=== PATIENT | male | born 1980 | race Caucasian/White ===

== ENCOUNTER 2016-10-05 22:00 | Emergency (ER) | payer OTHER ==
[~2016-10-05] VITALS: Ht 185.4 cm; Wt 108.9 kg
[2016-10-05] MEDS ORDERED: KENALOG-40 ONE (22:25)
[2016-10-05] MEDS ORDERED: TORADOL ONE (22:25)
--- NOTE | 2016-10-05 22:25 | ER.PDOC ---
General Chief Complaint: Neck/Upper back Pain Stated Complaint: NECK PAIN Time seen by MD: 22:23 Source: patient Exam Limitations: no limitations History of Present Illness Initial Comments Neck pain for 6 Months worse today. No new injury. Has been to multiple Physicians including a Neurologist. He also has blurry vision with the right eye. Severity/Quality: moderate Allergies: Coded Allergies: No Known Allergies (Unverified , 10/05/16) Past Medical History Medical History: high cholesterol, hypertension, other (Chronic neck pain) Surgical History: cholecystectomy Social History Smoking: cigarettes, less than 1 pack/day Alcohol Use: none Drug Use: none Review of Systems Constitutional: no symptoms reported EENTM: see HPI Respiratory: no symptoms reported Cardiovascular: no symptoms reported Gastrointestinal: no symptoms reported Musculoskeletal: see HPI All Other Systems: Reviewed and Negative Physical Exam General Appearance: No Apparent Distress, WD/WN HEENT: PERRL/EOMI, Normal ENT Inspection, TMs Normal, Pharynx Normal Neck: Tenderness Cardiovascular/Respiratory: Regular Rate, Rhythm, No M/R/G, Normal Peripheral Pulses, No JVD, Normal Breath Sounds, No Respiratory Distress Gastrointestinal: Normal Bowel Sounds, No Organomegaly, No Pulsatile Mass, Non Tender, Soft Back: Normal Inspection, No CVA Tenderness, No Vertebral Tenderness Extremities: No Evidence of Injury, Normal Range of Motion, Non-Tender, No Pedal Edema, Pelvis Stable 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, 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, mood/effect nml, No Motor/Sensory Deficits, Relexes nml Results/Orders Results/Orders Administered Medications Medications (Trade) Dose Ordered Sig/Justin Route PRN Reason Start Time Stop Time Status Last Admin Dose Admin Ketorolac Tromethamine (Toradol) 60 mg OT ONCE IM 10/05/16 22:30 10/05/16 22:31 DC 10/05/16 22:31 Triamcinolone Acetonide (Kenalog-40) 40 mg OT ONCE IM 10/05/16 22:30 10/05/16 22:31 DC 10/05/16 22:30 EKG/XRAY/CT/US CT Comments: Normal CT head and C spine Departure Time of Disposition: 23:27 Disposition: 01 HOME, SELF-CARE Impression: Primary Impression: Neck pain Condition: Stable Referrals: PCP,UNKNOWN (PCP) PRIMARY CARE PROVIDER Additional Instructions: Continue home medications F/U with your PCP next week VICTORIANO,SHALINI Jaimes MD Oct 05, 2016 22:25
[2016-10-05] MEDS ORDERED: KENALOG-40 IM ONE (22:30)
[2016-10-05] MEDS ORDERED: TORADOL IM ONE (22:30)
--- NOTE | 2016-10-05 23:11 | DIREP ---
PROCEDURE:CT HEAD OR BRAIN W/O CONTRAST COMPARISON:None. INDICATIONS:Pain and blurry vision TECHNIQUE:CT images were created without intravenous contrast. FINDINGS: VENTRICLES:The ventricles are normal in size and configuration. CEREBRUM:Normal cerebral morphology with appropriate barrett white matter differentiation. CEREBELLUM:Negative. BRAINSTEM:Negative. BASAL CISTERNS:Negative. HEMORRHAGE:No MASS LESION:No ACUTE INFARCT:No SKULL:Normal. SINUSES:Normal. OTHER:None CONCLUSION:Normal examination. Dictated by: Miguel Lowry MD on 10/05/2016 at 11:10 PM
--- NOTE | 2016-10-05 23:12 | DIREP ---
PROCEDURE: CT SPINE CERVICAL W/0 COMPARISON:None. INDICATIONS:pain FINDINGS: ALIGNMENT:Normal. VERTEBRAE:Normal. PARASPINAL AREA:Normal. OTHER:No additional findings. CERVICAL DISC LEVELS C2-C3:Normal. C3-C4:Normal. C4-C5:Normal. C5-C6:Normal. C6-C7:Normal. C7-T1:Normal. CONCLUSION:Normal examination. Dictated by: Miguel Lowry MD on 10/05/2016 at 11:11 PM
[2016-10-05 23:30] VITALS: BP 139/83
== END 2016-10-05 23:34 | disposition home or self-care (01) ==
LOC: ER 22:00
DX: M54.2 Cervicalgia (principal); H53.8 Other visual disturbances; E78.00 Pure hypercholesterolemia, unspecified; I10 Essential (primary) hypertension; F17.210 Nicotine dependence, cigarettes, uncomplicated; Z90.49 Acquired absence of other specified parts of digestive tract
CPT/HCPCS: 70450; 72125; 96372 ×2; 99284; J1885; J3301

== ENCOUNTER 2016-11-16 09:32 | Emergency (ER) | payer OTHER ==
[~2016-11-16] VITALS: Ht 185.4 cm; Wt 113.4 kg
[2016-11-16] MEDS ORDERED: GENTAK ONE (10:04)
--- NOTE | 2016-11-16 10:13 | ER.PDOC ---
General Chief Complaint: Eye Problems Stated Complaint: RIGHT EYE PROBLEMS TRAVEL OUT OF US: No Time seen by MD: 10:10 Source: patient Exam Limitations: no limitations History of Present Illness Initial Comments pain R eye Severity: mild Associated Symptoms: denies symptoms Allergies: Coded Allergies: No Known Allergies (Unverified , 10/05/16) Past Medical History Medical History: no pertinent history Surgical History: cholecystectomy Family History Significant Family History: no pertinent family hx Social History Smoking: non-smoker, less than 1 pack/day Alcohol Use: none Drug Use: none Review of Systems All Other Systems: Reviewed and Negative Physical Exam General Appearance: Anxious Neck: Non-Tender, Full Range of Motion Respiratory: chest non-tender, lungs clear Gastrointestinal: Normal Bowel Sounds, No Organomegaly Rectal: Normal Exam Back: Normal Inspection, No CVA Tenderness Extremities: Normal Range of Motion, Non-Tender 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
[2016-11-16 10:56] VITALS: BP 131/99
== END 2016-11-16 10:23 | disposition home or self-care (01) ==
LOC: ER 09:32
DX: S05.01XA Injury of conjunctiva and corneal abrasion without foreign body, right eye, initial encounter (principal); F17.200 Nicotine dependence, unspecified, uncomplicated; X58.XXXA Exposure to other specified factors, initial encounter; Y93.89 Activity, other specified; Y92.89 Other specified places as the place of occurrence of the external cause; Y99.8 Other external cause status
CPT/HCPCS: 99283